=== PATIENT | male | born 1960 | race African-American/Black ===

== ENCOUNTER 2021-04-26 10:41 | Emergency (ER) | payer MEDICAID ==
[~2021-04-26] VITALS: Ht 172.7 cm; Wt 63.0 kg
[2021-04-26] MEDS ORDERED: IBUPROFEN 600MG TABLET PO ONE (11:30)
[2021-04-26] MEDS ORDERED: DIPHENHYDRAMINE 25MG CAPSULE PO ONE (11:30)
[2021-04-26] MEDS ORDERED: IBUP-2029 MT (11:32)
[2021-04-26] MEDS ORDERED: CLAR10 MT (11:32)
[2021-04-26] MEDS ORDERED: DIPH25CA83 MT (11:32)
[2021-04-26 11:53] VITALS: BP 102/63
== END 2021-04-26 12:02 | disposition home or self-care (01) ==
LOC: ER 10:41
DX: T63.441A Toxic effect of venom of bees, accidental (unintentional), initial encounter (principal); F12.10 Cannabis abuse, uncomplicated; Y92.9 Unspecified place or not applicable
CPT/HCPCS: 99283; Q0163